=== PATIENT | male | born 1970 | race Caucasian/White ===

== ENCOUNTER 2016-05-21 10:01 | Emergency (ER) | payer OTHER ==
[~2016-05-21] VITALS: Ht 185.4 cm; Wt 79.4 kg
[~2016-05-21 10:01] MED LIST: AMOXIL500 MG PO; ENDOCET 325 MG-1 TA1 PO
--- NOTE | 2016-05-21 10:33 | ED NECK/BACK PAIN COMPLAINT ---
History of Present Illness General Chief Complaint: Low Back Pain/Injury Stated Complaint: LBP AT WORK THURSDAY/ WANTSNOTE TO RETURN TO WORK Source: patient, old records Exam Limitations: no limitations Vital Signs & Intake/Output Vital Signs & Intake/Output Vital Signs Date Time Temp Pulse Resp B/P Pulse O2 O2 Flow FiO2 Ox Delivery Rate 05/21 1112 98.0 78 130/66 05/21 1017 97.0 64 20 129/78 99 Room Air Allergies Coded Allergies: No Known Allergies (05/21/16) Reconcile Medications No Known Home Medications Triage Note: 46 Y/O MALE REQUESTING NOTE TO RETURN TO WORK; STATES HE HURT HIS BACK THURSDAY AND TOOK THURSDAY OFF TO USE HEAT AND REST. PT STATES HE WAS TOLD HE NEEDS NOTE TO RETURN TODAY. DENIES COMPLAINTS, FEELING "BETTER" WORKMANS COMP COMPLETED IN TRIAGE Triage Nurses Notes Reviewed? yes Onset: Abrupt Duration: day(s): (2), better, resolved prior to arrival Timing: recent history Quality/Severity: mild Location: lumbar spine Radiation: none Context: lifting Method of Injury: lifting Loss of Consciousness: no loss of consciousness Modifying Factors: movement Associated Symptoms: denies HPI: 46-year-old male with no medical history presents emergency room requesting a note for clearance to return to work. The patient states that he injured his lower back 2 days ago while at work while lifting a panel. 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 He states that he took yesterday off been taking ibuprofen, and took one of his 's Percocets with improvement in his pain. He states that he got on his inverted and felt the pain completely subsided. He states he went back to work however was told that he needed a work that he can return. The patient denies any pain there is no radiation of his symptoms no numbness or tingling. He denies any urinary or bowel incontinence of bowel pain fever or chills (MARIA VICTORIA HERNANDEZ) Past History Travel History Traveled to [place] past 21 day No Medical History Any Pertinent Medical History? 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 No (MARIA VICTORIA HERNANDEZ) Review of Systems Review of Systems Constitutional: Reports: see HPI. All Other Systems: Reviewed and Negative Comments Review of systems: See HPI, All other systems negative. Constitutional, no chills no fever, no malaise HEENT: No visual changes no sore throat no congestion Cardiovascular: No chest pain , no palpitation Skin, no rashes, no change in skin Respiratory: No dyspnea no cough no sputum GI: No nausea no vomiting, no diarrhea, : No dysuria Muscle skeletal: No joint pain, back pain, no neck pain, Neurologic: No numbness no headache Psych: No stress Heme/endocrine: No bruising no bleeding Immunology: No lymphadenopathy (MARIA VICTORIA HERNANDEZ) Physical Exam Physical Exam General Appearance: well developed/nourished, no apparent distress, alert, awake , comfortable Neck: normal inspection, supple, full range of motion Comments: Well-developed well-nourished patient in no apparent distress. HEENT: Atraumatic, extraocular motion intact Neck: Supple, FROM Back: FROM, Nontender no midline or paralumbar tenderness no ecchymosis Cardiovascular: Regular rate and rhythms no murmurs rubs Respiratory: No respiratory distress. Patient speaking in full complete sentences. Breath sounds clear to auscultation bilaterally: NO W/R/R Abdomen: Soft nontender Extremities: full range of motion negative straight leg raise Neuro: Alert and oriented x3 Skin: Warm & dry;No appreciable rash on exposed skin Psych: Mood affect normal, normal memory normal judgment. (MARIA VICTORIA HERNANDEZ) Progress Differential Diagnosis: cauda equina syn, herniated disc, myofascial strain, pyelo/UTI, spinal cord inj, T/L spine injury Plan of Care: Patient reports that he is here for work for clearance back to work he denies pain is declining anything to go home with for his symptoms. I advised follow- up with his primary care physician, worker comp or return to ER with any concerns he feels comfortable with this plan cleared for discharge (MARIA VICTORIA HERNANDEZ) Departure Departure Time of Disposition: 1100 Disposition: HOME OR SELF CARE Condition: Stable Clinical Impression Primary Impression: Low back strain Referrals: SUSHMA DUBON APRN (PCP/Family) Additional Instructions: Rest interchange ice and heat Tylenol or Motrin as needed. Follow-up with your primary care physician or return with any concerns Departure Forms: Customer Survey Employee Industrial Accident General Discharge Information Prescriptions: Current Visit Scripts No Known Home Medications (FOZIA KASPER,MARIA VICTORIA) PA/WILD LIFE PHOTOGRAPHER Co-Sign Statement Statement: ED Attending supervision documentation- [] I saw and evaluated the patient. I have also reviewed all the pertinent lab results and diagnostic results. I agree with the findings and the plan of care as documented in the PA's/WILD LIFE PHOTOGRAPHER's documentation. x I have reviewed the ED Record and agree with the PA's/WILD LIFE PHOTOGRAPHER's documentation. [] Additions or exceptions (if any) to the PAs/WILD LIFE PHOTOGRAPHER's note and plan are summarized below: [] (SUSAN TORRES,HAIR)
[2016-05-21 11:12] VITALS: BP 130/66
== END 2016-05-21 11:38 ==
LOC: ERH 10:01
DX: S39.012A Strain of muscle, fascia and tendon of lower back, initial encounter (principal); X50.0XXA Overexertion from strenuous movement or load, initial encounter; Y93.89 Activity, other specified; Y92.9 Unspecified place or not applicable